=== PATIENT | female | born 1985 | race Caucasian/White ===

== ENCOUNTER 2016-06-24 19:50 | Emergency (ER) | payer OTHER ==
[~2016-06-24] VITALS: Ht 170.2 cm; Wt 72.6 kg
--- NOTE | 2016-06-24 19:52 | ED ANKLE/FOOT INJURY COMPLAINT ---
History of Present Illness General Chief Complaint: Foot or Ankle Injury Stated Complaint: BIBA. RIGHT ANKLE PAIN Source: patient, old records Exam Limitations: no limitations Vital Signs & Intake/Output Vital Signs & Intake/Output Vital Signs Date Time Temp Pulse Resp B/P B/P Pulse O2 O2 Flow FiO2 Mean Ox Delivery Rate 06/24 2157 98.0 84 18 124/75 97 Room Air Room Air 06/24 1953 98.4 110 20 140/98 95 Room Air Room Air ED Intake and Output 06/25 0000 06/24 1200 Intake Total Output Total Balance Patient 160 lb Weight Weight Reported by Patient Measurement Method Allergies Coded Allergies: Penicillins (REACTION A CHILD 06/24/16) Reconcile Medications Hydrocodone/Acetaminophen ([place] 5-325 Tablet) 5 MG-325 MG TABLET 1 TAB PO Q4- 6 PRN PRN FRACTURE Ibuprofen 800 MG TABLET 1 TAB PO TID PAIN Norethindrone-E.estradiol-Iron (Junel Fe 1 MG-20 Mcg Tablet) 1 MG-20 MCG (21)/75 MG (7) TABLET 1 TAB PO DAILY BIR (Reported) Triage Nurses Notes Reviewed? yes Occurred: just prior to arrival Duration: hour(s): (1), constant Timing: recent history Severity: moderate, severe Severity Numbers: 10 Pain/Injury Location: Left: Ankle. Method of Injury: twisted Modifying Factors: Improves With: rest. Worsens With: movement. Associated Symptoms: swelling HPI: 30-year-old female presents to ER for evaluation complaining of moderate to severe left lateral ankle pain after she states she tripped going down the step in her house. She now presents with a positive deformity to the lateral malleolus. She is complaining of severe aching pain. She denies taking anything prior to arrival. There is no head strike no loss of consciousness. She denies any knee or hip or back pain no right leg pain (HUSSAIN NAVAS) Past History Travel History Traveled to [place] past 21 day No Medical History Any Pertinent Medical History? none Surgical History Surgical History: none Psychosocial History What is your primary language Congolese Family History Hx Contributory? No (HUSSAIN NAVAS) Review of Systems Review of Systems Constitutional: Reports: see HPI. All Other Systems: Reviewed and Negative Comments Review of systems: See HPI, All other systems negative. Constitutional, no chills no fever, no malaise HEENT: No visual changes no sore throat no congestion Cardiovascular: No chest pain , no palpitation Skin: no rashes, no change in skin Respiratory: No dyspnea no cough no sputum GI: No nausea no vomiting, no diarrhea, : No dysuria Muscle skeletal: No joint pain, no back pain, no neck pain, Neurologic: No numbness no headache Psych: No stress Heme/endocrine: No bruising no bleeding Immunology: No lymphadenopathy (HUSSAIN NAVAS) Physical Exam Physical Exam General Appearance: well developed/nourished, alert, awake Leg/Knee/Thigh Left: normal range of motion Comments: Well-developed well-nourished patient in no apparent distress. HEENT: Atraumatic, extraocular motion intact Neck: Supple, FROM Back: FROM Cardiovascular: Regular rate and rhythms no murmurs rubs or gallops, Respiratory: No respiratory distress. Patient speaking in full complete sentences. Breath sounds clear to auscultation bilaterally: NO W/R/R UPPER Extremities: full range of motion Hip/Pelvis: Atraumatic/Stable. FROM. Knee: Atraumatic/stable. FROM. No joint swelling, no effusion. No laxity. Negative hodan/anterior drawer test. No pain with ROM Leg: Atraumatic. No proximal tib-fib tenderness Nontender. No edema, 5 out of 5 strength in the lower extremity, normal dorsiflexion of great toe bilaterally, gross sensation is intact, patellar tendon reflex 2+ bilaterally. Ankle/Foot: Ankle with moderate tenderness laterally over the lateral ligaments. No medial tenderness. No instability is noted. Skin is intact, moderate swelling laterally No ecchymosis noted. The foot is neurovascularly intact with sensation and motor grossly intact. There is no foot tenderness or fifth metatarsal tenderness. Able to move all toes. Palpable and intact achilles tendon. There is no proximal tib/fib tenderness Pulses: Normal/equal DP/PT pulses bilaterally. Brisk cap refill Neuro: awake, alert, and oriented to person, place and time. There were no obvious focal neurologic abnormalities. Skin: Warm & dry;No appreciable rash on exposed skin Psych: Mood affect normal, normal memory normal judgment. (HUSSAIN NAVAS) Progress Differential Diagnosis: fracture, dislocation, sprain, contusion Plan of Care: Orders Procedure Date/time Status XRY-ANKLE 3 OR MORE VIEWS L 06/24 1954 Active Current Medications Sig/Van Start time Last Medication Dose Stop Time Status Admin Morphine Sulfate 4 MG ONCE ONE 06/25 1999 UNVr (Morphine) 06/24 2000 Ondansetron HCl 4 MG ONCE ONE 06/25 1999 UNVr (Zofran) 06/24 2000 Patient medicated morphine 4 IM Zofran 4 ODT I discussed with the patient leaves her results sugar tong U-splint was applied by me and neurovascularly intact prior to and after application of splint. I discussed with the patient at length all of their results. I had an extensive conversation regarding need for close follow up with orthopedist tomorrow. As well as return precautions. I answered all of their questions, they feel comfortable with the plan and follow-up care. I discussed the medications that they will receive with the patient. I gave them signs and symptoms that could indicate an adverse reaction. I have advised them to limit their activities until they can see how they respond to the medication. PATIENT: KHUSHBOO IVEY PRESENT AGE: 30 PATIENT ACCOUNT NO: [id number] : 87 LOCATION: [facility] ORDERING PHYSICIAN: HUSSAIN BANEGAS SERVICE DATE: 06/24/16 EXAM TYPE: RAD - XRY-ANKLE 3 OR MORE VIEWS L EXAMINATION: XR ANKLE, LEFT CLINICAL INFORMATION: Left ankle deformity following a fall. COMPARISON: Left ankle radiographs dated 12/12/2008. TECHNIQUE: AP, lateral, and mortise views of the left ankle. FINDINGS: There is prominent focal soft tissue swelling overlying the lateral malleolus. A minimally displaced 2-3 mm osseous fragment is seen adjacent to the tip of the lateral malleolus, consistent with an avulsion fracture. No additional fracture is identified. The ankle mortise is well-maintained. No joint space narrowing or marginal osteophytes. No osseous erosion. IMPRESSION: Prominent soft tissue swelling overlying the lateral malleolus. Small osseous fragment adjacent to the distal lateral malleolus, consistent with an avulsion fracture. DICTATED BY: SERENITY PLUNKETT MD DATE/TIME DICTATED:06/24/162108 LEAD TECHNICAL ARCHITECT:RICHIE DATE/TIME TRANSCRIBED:06/24/162108 CONFIDENTIAL, DO NOT COPY WITHOUT APPROPRIATE AUTHORIZATION. <Electronically signed in Other Vendor System> SIGNED BY: SERENITY PLUNKETT MD 2115 (HUSSAIN NAVAS) Diagnostic Imaging: Viewed by Me: Radiology Read. Discussed w/RAD: Radiology Read. (HUSSAIN NAVAS) Departure Departure Time of Disposition: 2117 Disposition: HOME OR SELF CARE Condition: Stable Clinical Impression Primary Impression: Ankle fracture Referrals: RANDELL GOOD,MARCY HORTON CNM,ENZO Hung Additional Instructions: REST, ICE, TYLENOL OR MOTRIN. NORCO FOR BREAKTHROUGH PAIN. USE CAUTION THIS IS A NARCTOIC AND HIGHLY ADDICTIVE. NO DRIVING OR DRINKING ALCOHOL WHILE TAKING. KEEP SPLINT ON AT ALL TIMES UNTILL SEEN BY ORTHOPEDIST DR MEJIAS. KEEP LEG ELEVATED, CRUTCHES WHEN AMBULATORY. Departure Forms: Customer Survey General Discharge Information Prescriptions: Current Visit Scripts Hydrocodone/Acetaminophen ([place] 5-325 Tablet) 1 TAB PO Q4-6 PRN PRN FRACTURE #15 TAB Ibuprofen 1 TAB PO TID #30 TAB (HUSSAIN NAVAS) PA/PACKAGING ENGINEER Co-Sign Statement Statement: ED Attending supervision documentation- [] I saw and evaluated the patient. I have also reviewed all the pertinent lab results and diagnostic results. I agree with the findings and the plan of care as documented in the PA's/PACKAGING ENGINEER's documentation. [x] I have reviewed the ED Record and agree with the PA's/PACKAGING ENGINEER's documentation. [] Additions or exceptions (if any) to the PAs/PACKAGING ENGINEER's note and plan are summarized below: [] (YAMILE GOOD,EMMETT Martinez) Procedures Splinting Location: lle Manual Alignment Performed: No Hand-Made Type: orthoglass Splint: sugar-tong, posterior walking Splint Applied By: splint applied by me Pre-Proc Neuro Vasc Exam: normal Post-Proc Neuro Vasc Exam: normal (HUSSAIN NAVAS)
[2016-06-24] MEDS ORDERED: JUNEL FE 1 MG-1 EACH PO (19:59)
--- NOTE | 2016-06-24 21:16 | RADIOLOGY REPORT ---
EXAMINATION: XR ANKLE, LEFT CLINICAL INFORMATION: Left ankle deformity following a fall. COMPARISON: Left ankle radiographs dated 12/12/2008. TECHNIQUE: AP, lateral, and mortise views of the left ankle. FINDINGS: There is prominent focal soft tissue swelling overlying the lateral malleolus. A minimally displaced 2-3 mm osseous fragment is seen adjacent to the tip of the lateral malleolus, consistent with an avulsion fracture. No additional fracture is identified. The ankle mortise is well-maintained. No joint space narrowing or marginal osteophytes. No osseous erosion. IMPRESSION: Prominent soft tissue swelling overlying the lateral malleolus. Small osseous fragment adjacent to the distal lateral malleolus, consistent with an avulsion fracture.
[2016-06-24] MEDS ORDERED: IBUPROFEN800 M1 PO (21:37)
[2016-06-24] MEDS ORDERED: NORCO 5-325 TA1 EACH PO (21:37)
[2016-06-24 21:58] VITALS: BP 124/75
== END 2016-06-24 21:59 ==
LOC: ERH 19:50
DX: S82.61XA Displaced fracture of lateral malleolus of right fibula, initial encounter for closed fracture (principal); W10.9XXA Fall (on) (from) unspecified stairs and steps, initial encounter; Y93.9 Activity, unspecified; Y92.009 Unspecified place in unspecified non-institutional (private) residence as the place of occurrence of the external cause
CPT/HCPCS: 73610-LT; 96372; J3101

== ENCOUNTER 2017-10-25 23:04 | Inpatient (IN) | payer OTHER ==
[~2017-10-25] VITALS: Ht 170.2 cm; Wt 79.8 kg
[~2017-10-25 23:04] MED LIST: IBUPROFEN800 M1 PO; JUNEL FE 1 MG-1 EACH PO; NORCO 5-325 TA1 EACH PO
[2017-10-26 00:21] VITALS: BP 122/78
[2017-10-26 00:39] LABS: ABSOLUTE BASOPHIL COUNT 0.1 /CUMM (0.0-0.2); ABSOLUTE EOSINOPHIL COUNT 0.1 /CUMM (0.0-0.7); ABSOLUTE GRANULOCYTE CT 8.8 /CUMM (1.4-6.5); ABSOLUTE LYMPH COUNT 2.8 /CUMM (1.2-3.4); ABSOLUTE MONOCYTE COUNT 1.1 /CUMM (0.10-0.60); BASOPHIL % 0.4 % (0.0-2.0); EOSINOPHIL % 0.9 % (0-5); GRANULOCYTE % 68.3 % (42.2-75.2); HEMATOCRIT 31.7 % (37-47); MEAN CORPUSCULAR HGB 30.9 PG (27.0-31.0); MEAN CORPUSCULAR HGB CONC 35.3 G/DL (33.0-37.0); MEAN CORPUSCULAR VOLUME 87.7 FL (81.0-99.0); MEAN PLATELET VOLUME 9.8 FL (7.4-10.4); PLATELET COUNT 254 /CUMM (130-400); RBC DISTRIBUTION WIDTH 12.4 % (11.5-14.5); RED BLOOD CELL CT 3.62 /CUMM (4.20-5.40); WHITE BLOOD CELL COUNT 12.9 /CUMM (4.8-10.8)
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
--- NOTE | 2017-10-26 08:22 | PN- OBGYN ---
Surgical Brief Attending Note Brief Attending Note: No complaints of contractions Vitals per paper record. Afebrile Now FD/0/ARABELLA/no molding Catagory 1 tracing Monitor second stage and reassess in one hour
--- NOTE | 2017-10-26 10:30 | Labor & Delivery Summary ---
Delivery Summary Vaginal Delivery: Vaginal: vertex : : vacuum Station/Position at [place]: +2 Indication: Recurrent decelerations Episiotomy/Lacerations: Episiotomy/Lacerations: 2nd degree Type: 2nd degree Repair: 3-0 vicryl Anesthesia: Local 10 cc Placenta: Placenta: spontanteous, normal, 3 vessel Anesthesia: Epidural Cord PH Value: 7.4 and 7.21 Baby's Weight: 2930 Apgars - 1 Min: 9 Apgars - 5 Min: 9 Additional Comments: Patient pushed with good effort Noted heart rate decelerations from 150 to 90's recurrent. Pushed to +2 and I discussed with her about use of vacuum. Kiwi type was used. One application allowed delivery of to pressure of less than 50 mm HG ( Within the green zone) No cephalohematoma noted on . Peds was present Shoulders passed spontaneously without difficulty. Cord gases sent with apgars 9-9 Placenta inspected and intact Uterus tonic with oxytocin 2nd degree laceration repaired with 3-0 vicryl. Mild hematoma noted and not expanding on left lower labia. Rectum intact and hemostatic vulvar laceration. EBL 300 cc Pain mgmt strategies reviewed Partner present for delivery. Benefits of pneumovax reviewed as she is a tobacco user. Self reports 10 per day. Benefits of tdap reviewed To start on NRT 14 mg patch daily to aid with tobacco use. Placenta to pathology as with meconium and tobacco user.
[2017-10-27 06:46] LABS: ABSOLUTE BASOPHIL COUNT 0.1 /CUMM (0.0-0.2); ABSOLUTE EOSINOPHIL COUNT 0.2 /CUMM (0.0-0.7); ABSOLUTE GRANULOCYTE CT 12.2 /CUMM (1.4-6.5); ABSOLUTE LYMPH COUNT 2.8 /CUMM (1.2-3.4); ABSOLUTE MONOCYTE COUNT 1.4 /CUMM (0.10-0.60); BASOPHIL % 0.4 % (0.0-2.0); EOSINOPHIL % 1.2 % (0-5); GRANULOCYTE % 73.1 % (42.2-75.2); MEAN CORPUSCULAR HGB 30.8 PG (27.0-31.0); MEAN CORPUSCULAR HGB CONC 33.8 G/DL (33.0-37.0); MEAN CORPUSCULAR VOLUME 91.1 FL (81.0-99.0); MEAN PLATELET VOLUME 9.9 FL (7.4-10.4); PLATELET COUNT 217 /CUMM (130-400); RBC DISTRIBUTION WIDTH 13.2 % (11.5-14.5); RED BLOOD CELL CT 3.29 /CUMM (4.20-5.40); WHITE BLOOD CELL COUNT 16.7 /CUMM (4.8-10.8)
[2017-10-27] MEDS ORDERED: IBUPROFEN800 M1 PO (08:23)
[2017-10-27] MEDS ORDERED: NICOTINE PATCH1 EAC2 TOP (08:23)
--- NOTE | 2017-10-27 08:36 | PN- OBGYN ---
Surgical Brief Attending Note Brief Attending Note: Feels well. States cramps are present but pain meds help. States swelling in vaginal area is less No nausea States NRT is working and no cravings for tobacco Ambulating well Afebrile and vitals stable Lungs clear Abdomen soft No edema Rh positive and hct of 30 PPD#1 s/p vaginal NRT to continue at 14 mg to reduce cravings and also reduce risks such as respiratory infection, ear infections and or SIDS. Tucks for vulvar comfort as needed. She may consider Arnica gel OTC for same. Pain mgmt strategies reviewed Tdap and Pneumovax prior to dc. DC home tomorrow.
--- NOTE | 2017-10-28 10:03 | PN- OBGYN ---
Surgical Brief Attending Note Brief Attending Note: Seen and evaluated OOB and tolerating diet Offers no complaints and cramps are improving AVSS Fundus firm DC home today Follow up Saturday for CBC assessment Follow up [address] Cody.
== END 2017-10-28 10:45 | DRG 560 ==
LOC: CBCO 23:04 → GNO 23:46
PROVIDERS: Obstetrics & Gynecology
PROC: 10D07Z6 Extraction of Products of Conception, Vacuum, Via Natural or Artificial Opening (ICD-10-PCS; principal; 2017-10-26)
PROC: 0KQM0ZZ Repair Perineum Muscle, Open Approach (ICD-10-PCS; 2017-10-26)
DX: O70.1 Second degree perineal laceration during delivery (principal); O77.0 Labor and delivery complicated by meconium in amniotic fluid; O99.334 Smoking (tobacco) complicating childbirth; O76 Abnormality in fetal heart rate and rhythm complicating labor and delivery; Z3A.40 40 weeks gestation of pregnancy; Z37.0 Single live birth; Z88.1 Allergy status to other antibiotic agents; Z88.0 Allergy status to penicillin
CPT/HCPCS: GNOP; GNOS; 36415; 80307; 81001; 87086; 90732; J7120